=== PATIENT | male | born 1980 | race Caucasian/White ===

== ENCOUNTER 2017-11-27 08:06 | Outpatient (CLI) | payer BC ==
--- NOTE | 2017-11-27 10:10 | ULT ---
URINARY BLADDER ULTRASOUND: Date: 11/27/17 CLINICAL HISTORY: Lower abdominal/pelvic pain. FINDINGS: The urinary bladder is incompletely evaluated as it is minimally distended. Utilizing Doppler imaging , ureteral jets are listed bilaterally from the urinary bladder. There is incidental imaging of the p rostate gland, which is not pathologically enlarged. Punctate areas of increased echogenicity likely related to prostatic calcification. IMPRESSION: 1. Small volume urinary bladder, which is essentially decompressed, limiting assessment. Ureteral je ts are demonstrated with Doppler imaging. 2. Incidental imaging of the adjacent prostate gland reveals size diameter of approximately 3.6 cm. POS: LIANA
--- NOTE | 2017-11-27 10:12 | ULT ---
ULTRASOUND ABDOMEN COMPLETE: Date: 11/27/17 INDICATION: Lower abdominal pain. TECHNIQUE: Marinelli-scale ultrasound evaluation of the liver, gallbladder, spleen, pancreas, common bile duct, kidne ys, abdominal aorta, and inferior vena cava (IVC). FINDINGS: There is no focal hepatic lesion. No acute gallbladder pathology. No ascites. The kidneys reveal no e vidence of hydronephrosis. No focal splenic pathology. Pancreas is partially obscured from view by socorro wel content. Common duct is normal, where visualized, at 2-3 mm. No ascites or additional significant abnormality of the imaged abdomen by sonographic assessment. IMPRESSION: No acute intra-abdominal pathology identified. POS: LIANA
== END 2017-11-27 08:07 | disposition home or self-care (01) ==
LOC: SCSULT 08:06
PROVIDERS: ATTEND Family Medicine
DX: R10.30 Lower abdominal pain, unspecified (principal); R10.11 Right upper quadrant pain
CPT/HCPCS: 76700; 76856